=== PATIENT | female | born 1980 | race Caucasian/White ===

== ENCOUNTER 2019-06-28 06:37 | Day surgery (SDC) | payer BC ==
[~2019-06-28 06:37] MED LIST: Lactated Ringers 1,000 ML IV SCH; Lidocaine 1%/Sod Bicarbonate in NS 8.4% 1 ML Syringe IDERM PRN; Sodium Chloride 0.9% 10 ML Syringe FLUSH PRN
[2019-06-28] MEDS ORDERED: Lidocaine 1% 0 ML ONE (06:38)
[2019-06-28] MEDS ORDERED: fentaNYL 100 MCG/2 ML SDV ONE (06:38)
[2019-06-28] MEDS ORDERED: Propofol 200 MG/20 ML SDV ONE (06:38)
[2019-06-28] MEDS ORDERED: Midazolam 1 MG/ML 2 ML SDV ONE (06:39)
[2019-06-28] MEDS ORDERED: Bupivacaine 0.25% 10 ML SDV ONE ×2 (06:47→06:48)
[2019-06-28] MEDS ORDERED: Lidocaine 1% 30 ML SDV ONE (06:48)
--- NOTE | 2019-06-28 06:53 | PCM.PREANE ---
Preanesthetic Assessment - Procedure Proposed Procedure: left carpal tunnel release - Anesthesia/Transfusion/Family Hx Anesthesia History: Prior Anesthesia Without Reaction Family History of Anesthesia Reaction: No Transfusion History: No Prior Transfusion(s) - Review of Systems General: No Symptoms Pulmonary: No Symptoms Cardiovascular: No Symptoms Gastrointestinal: No Symptoms Neurological: No Symptoms Other: Reports: None - Physical Assessment NPO Status Date: 06/27/19 NPO Status Time: 23:50 Vital Signs: 113/70 16 98.3 97% 66 Height: 5 ft 5 in Weight: 58 kg ASA Class: 2 Mental Status: Alert & Oriented x3 Airway Class: Mallampati = 1 Dentition: Reports: Normal Dentition Thyro-Mental Finger Breadths: 3 Mouth Opening Finger Breadths: 3 ROM/Head Extension: Full Lungs: Clear to Auscultation, Normal Respiratory Effort, Decreased Breath Sounds Cardiovascular: Regular Rate, Regular Rhythm - Lab Values: Laboratory Last Values MRSA (PCR) Negative 06/26/19 10:26 - Allergies Allergies/Adverse Reactions: Allergies Allergy/AdvReac Type Severity Reaction Status Date / Time aloe vera Allergy unknown Verified 12/13/13 11:26 Sulfa (Sulfonamide Allergy Rash Verified 12/14/13 10:51 Antibiotics) - Blood Blood Available: No - Acknowledgements Anesthesia Type Planned: MAC Pt an Appropriate Candidate for the Planned Anesthesia: Yes Alternatives and Risks of Anesthesia Discussed w Pt/Guardian: Yes Pt/Guardian Understands and Agrees with Anesthesia Plan: Yes PreAnesthesia Questionnaire HEENT History: Reports: Allergic Rhinitis Respiratory History: Reports: Asthma, Bronchitis, Recurrent Other Respiratory History: states exercise induced asthma- used inhalers yesterday Gastrointestinal History: Reports: None Other OB/BYN History: spontaneous vaginal delivery Musculoskeletal History: Reports: Arthritis Other Psychiatric History: insomnia, fatigue Hematologic History: Reports: Anemia Other Hematologic History: patient states anemia is resolved Other Dermatologic History: acne - Past Surgical History Female Surgical History: Reports: Section, Hysterectomy, LEEP, Tubal Ligation Musculoskeletal Surgical History: Reports: Other (See Below) (wrist surgery) Other Musculoskeletal Surgeries/Procedures:: partial thumb amputation - SUBSTANCE USE Second Hand Smoke Exposure: No Days Per Week of Alcohol Use: 0 Recreational Drug Use History: No - HOME MEDS Home Medications: Home Meds Fexofenadine/Pseudoephedrine [Joana-D 12 Hour Tablet] 1 each PO DAILY [History] Ibuprofen [Advil] 400 mg PO PRN 12/14/13 [History] Zolpidem Tartrate [Ambien] 10 mg PO BEDTIME 12/14/13 [History] Albuterol [Ventolin HFA] 1 puff INH Q4HR PRN 06/27/19 [History] Clindamycin Phosphate [Clindagel] 1 applic TOP ASDIRECTED PRN 06/27/19 [History] traMADol [Ultram] 50 - 100 mg PO Q6H PRN #10 tab 06/28/19 [Rx] - CURRENT (IN HOUSE) MEDS Current Meds: Current Medications Lactated Ringer's (Ringers, Lactated) 1,000 mls @ 125 mls/hr IV ASDIRECTED PUMA Stop: 06/28/19 23:00 Lidocaine/Sodium Bicarbonate (Buffered Lidocaine 1% In Ns 8.4%) 0.25 ml IDERM ONETIME PRN PRN Reason: Prior to IV Start Stop: 06/28/19 18:00 Sodium Chloride (Saline Flush) 10 ml FLUSH ASDIRECTED PRN PRN Reason: Keep Vein Open Stop: 06/28/19 18:00 Discontinued Medications Fentanyl (Sublimaze) Confirm Administered Dose 100 mcg .ROUTE .STK-MED ONE Stop: 06/28/19 06:39 Lidocaine HCl (Xylocaine-Mpf 1%) Confirm Administered Dose 4 mls @ as directed .ROUTE .STK-MED ONE Stop: 06/28/19 06:39 Midazolam HCl (Versed 1 Mg/Ml) Confirm Administered Dose 2 mg .ROUTE .STK-MED ONE Stop: 06/28/19 06:40 Propofol (Diprivan 20 Ml) Confirm Administered Dose 200 mg .ROUTE .STK-MED ONE Stop: 06/28/19 06:39
--- NOTE | 2019-06-28 07:58 | PCM48HPAN ---
Post Anesthesia Note - EVALUATION WITHIN 48HRS OF ANESTHETIC Vital Signs in Normal Range: Yes Patient Participated in Evaluation: Yes Respiratory Function Stable: Yes Airway Patent: Yes Cardiovascular Function Stable: Yes Hydration Status Stable: Yes Pain Control Satisfactory: Yes Nausea and Vomiting Control Satisfactory: Yes Mental Status Recovered: Yes Vital Signs: Last Vital Signs Temp 98.2 F 06/28/19 06:45 Pulse 66 06/28/19 06:45 Resp 16 06/28/19 06:45 BP 113/70 06/28/19 06:45 Pulse Ox 97 06/28/19 06:45 69 12 98.2 94% 103/70
--- NOTE | 2019-07-03 16:10 | PCM.OPNOTE ---
- General Post-Op/Procedure Note Date of Surgery/Procedure: 06/28/19 Operative Procedure(s): left carpal tunnel release Pre Op Diagnosis: left median nerve compression neuropathy Post-Op Diagnosis: Same Anesthesia Technique: Local, MAC Primary Surgeon: Bear Mendoza Anesthesia Provider: Britney Guevara Metal Control Coordinator: Renee Driscoll EBL in mLs: 5 Complications: None Condition: Good
--- NOTE | 2019-07-03 17:15 | OR ---
DATE OF OPERATION: 06/28/2019 SURGEON: Bear Mendoza MD OPERATION PERFORMED: Left carpal tunnel release. PREOPERATIVE DIAGNOSIS: Left median nerve compression neuropathy. POSTOPERATIVE DIAGNOSIS: Left median nerve compression neuropathy. ANESTHESIA: Local MAC. ANESTHESIA PROVIDER: Britney Guevara CRNA. HOME AND FAMILY LIVING PROFESSOR: Renee Driscoll PA-C ESTIMATED BLOOD LOSS: Less than 5 mL. COMPLICATIONS: None. CONDITION: Stable. DESCRIPTION OF PROCEDURE: The patient was identified in the preop holding area. Proper site was marked and identified by the surgeon. The patient was taken back to the operating theater where after adequate anesthesia, the patient's left upper extremity was sterilely prepped and draped in the usual sterile fashion. OR time-out was performed. The patient did not receive antibiotics and it is not indicated for soft tissue hand procedure. At this time, the left upper extremity was exsanguinated and an Esmarch was used as a tourniquet on the forearm. At this time, using 1% lidocaine without epinephrine and 0.25% Marcaine without epinephrine, the palmar cutaneous branch of the median nerve was anesthetized and then the incisional site was anesthetized using Bailey cardinal line and ulnar border of the fourth digit as reference. Once this had set up, an incision was made. Blunt dissection was taken down to the palmar cutaneous fascia. Palmar cutaneous fascia was incised with a [place] blade. At this time, the transverse carpal ligament was identified. A small rent was made in the transverse carpal ligament with a [place] blade under direct visualization. Resection of the transverse carpal ligament was done distally using tenotomy scissors making sure to stop short of the palmar arch. At this time, attention was turned proximally after it was found to be adequately released. Using the tenotomy scissors keeping the tips ulnar to protect the palmar cutaneous branch of the median nerve, the superficial forearm fascia as well as the transverse carpal ligament were resected proximally. It was found to be adequate release both proximally and distally. At this time, adequate saline was irrigated through the wound. 4-0 nylon sutures were used closure of the skin. The patient was placed in a sterile soft dressing and sent to PACU in stable condition. MMODAL /[id number]
== END 2019-06-28 08:18 | disposition home or self-care (01) ==
LOC: JD.SDS 06:37
PROVIDERS: ATTEND Orthopaedic Surgery
DX: G56.02 Carpal tunnel syndrome, left upper limb (principal); J45.909 Unspecified asthma, uncomplicated; Z91.09 Other allergy status, other than to drugs and biological substances; Z88.2 Allergy status to sulfonamides; Z79.899 Other long term (current) drug therapy
CPT/HCPCS: 64721; 87641; J2001; J2250; J2704; J3010; J3490; J7120; 01810

== ENCOUNTER 2023-03-11 18:02 | Emergency (ER) | payer BC ==
[2023-03-11] MEDS ORDERED: Ketorolac 30 MG/ML SDV IM ONE (18:25)
== END 2023-03-11 19:57 | disposition home or self-care (01) ==
LOC: JD.ED 18:02
DX: S50.12XA Contusion of left forearm, initial encounter (principal); J45.909 Unspecified asthma, uncomplicated; Z98.890 Other specified postprocedural states; Z79.899 Other long term (current) drug therapy; W22.8XXA Striking against or struck by other objects, initial encounter
CPT/HCPCS: 73030; 73090; 96372; 99283; J1885

== ENCOUNTER 2023-07-26 19:34 | Emergency (ER) | payer BC ==
[2023-07-26] MEDS ORDERED: Orphenadrine 60 MG/2 ML Inj IM ONE (20:22)
[2023-07-26] MEDS ORDERED: Ketorolac 60 MG/2 ML SDV IM ONE (20:22)
== END 2023-07-26 21:55 | disposition home or self-care (01) ==
LOC: JD.ED 19:34
DX: S16.1XXA Strain of muscle, fascia and tendon at neck level, initial encounter (principal); J45.909 Unspecified asthma, uncomplicated; Z79.899 Other long term (current) drug therapy; Z90.710 Acquired absence of both cervix and uterus; X58.XXXA Exposure to other specified factors, initial encounter
CPT/HCPCS: 93005; 96372; 99283; J1885; J2360

== ENCOUNTER 2024-01-25 11:45 | Day surgery (SDC) | payer BC ==
[2024-01-25] MEDS ORDERED: Lidocaine 2% 5 ML SDV ONE (12:54)
[2024-01-25] MEDS ORDERED: Propofol 200 MG/20 ML SDV ONE (12:55)
[2024-01-25] MEDS ORDERED: dexmedeTOMIDine HCl 200 MCG/2 ML SDV ONE (13:07)
[2024-01-25] MEDS: EPINEPHrine 1 MG/ML SDV ONE (13:13)
[2024-01-25] MEDS: Bupivacaine 0.25% 10 ML SDV ONE (13:13)
[2024-01-25] MEDS ORDERED: Ondansetron 4 MG/2 ML SDV IVPUSH ONE (13:32)
[2024-01-25] MEDS ORDERED: Acetaminophen 325 MG Tab PO ONE (13:32)
== END 2024-01-25 14:30 | disposition home or self-care (01) ==
LOC: JD.SDS 11:45
PROVIDERS: ATTEND Surgery
DX: S61.452A Open bite of left hand, initial encounter (principal); J45.909 Unspecified asthma, uncomplicated; Z79.899 Other long term (current) drug therapy
CPT/HCPCS: 11042; 87070; 87075; 87102; 87205; J0171; J0665; J2704; J3490